=== PATIENT | male | born 1950 | race Caucasian/White ===

== ENCOUNTER 2021-12-27 08:00 | Outpatient (RCR) | payer MEDICARE, SELFPAY | END 2021-12-27 08:05 | disposition home or self-care (01) | LOC: PT 08:00 | PROVIDERS: PCP Family Medicine; Visit Provider Family Medicine | DX: L03.116 Cellulitis of left lower limb (principal); L03.115 Cellulitis of right lower limb | CPT/HCPCS: 29580; 97163; 97164; 97597; 97598; 97760 ==